=== PATIENT | male | born 1975 | race African-American/Black ===

== ENCOUNTER 2017-09-22 20:00 | Emergency (ER) | payer OTHER ==
[~2017-09-22] VITALS: Ht 180.3 cm; Wt 108.9 kg
[2017-09-22] MEDS ORDERED: NOHOMEMEDICATIONS (20:14)
[2017-09-22] MEDS ORDERED: OXYCODONE HCL 55 MG PO (21:37)
[2017-09-22 21:45] VITALS: BP 148/90
== END 2017-09-22 21:46 | disposition home or self-care (01) ==
LOC: ER 20:00
DX: M25.562 Pain in left knee (principal); J45.909 Unspecified asthma, uncomplicated

== ENCOUNTER 2019-01-08 17:33 | Emergency (ER) | payer BC, OTHER ==
[~2019-01-08] VITALS: Ht 180.3 cm; Wt 108.9 kg
[~2019-01-08 17:33] MED LIST: NOHOMEMEDICATIONS; OXYCODONE HCL 55 MG PO
[2019-01-08 18:13] LABS: HEMATOCRIT 44.1 % (42.0-52.0); HEMOGLOBIN 14.7 gm/dL (14.0-18.0); MCH 29.2 pg (26.0-34.0); MCHC 33.4 g/dL (28.0-37.0); MCV 87.3 fL (80.0-100.0); PLATELET COUNT 155 thou/uL (150-400); RBC 5.05 mil/uL (4.50-6.00); RDW 13.3 % (10.5-14.5); WBC 4.8 thou/uL (4.0-11.0)
[2019-01-08 18:16] LABS: CALCIUM 8.8 mg/dL (8.5-10.1); CREATININE 1.2 mg/dL (0.7-1.3); POTASSIUM 3.9 mmol/L (3.5-5.1)
[2019-01-08 18:22] LABS: TOTAL BILIRUBIN 0.3 mg/dL (<0.1-1.0); TOTAL PROTEIN 8.6 g/dL (6.4-8.2)
[2019-01-08 18:34] LABS: ABSOLUTE NEUTROPHILS 3.2 thou/uL (1.4-8.2)
[2019-01-08] MEDS ORDERED: PREDNISONE 20 M20 MG PO (18:54)
[2019-01-08] MEDS ORDERED: TESSALON PERLE100 MG PO (18:54)
[2019-01-08] MEDS ORDERED: PROAIR HFA8.5 GM INH (18:54)
[2019-01-08 18:57] VITALS: BP 136/100
[2019-01-08 19:09] LABS: URINE BILIRUBIN NEGATIVE (Negative); URINE BLOOD TRACE (Negative); URINE CLARITY CLEAR; URINE GLUCOSE-RANDOM* NEGATIVE (Negative); URINE KETONES NEGATIVE (Negative); URINE LEUKOCYTES-REFLEX NEGATIVE (Negative); URINE NITRITE-REFLEX NEGATIVE (Negative); URINE PROTEIN (DIPSTICK) TRACE (Negative); URINE SPECIFIC GRAVITY >= 1.030 (1.005-1.035); URINE UROBILINOGEN 0.2 E.U./dl (0.2-1.0)
[2019-01-08 19:10] LABS: URINE COLOR YELLOW
--- NOTE | 2019-01-10 07:31 | EKG ---
[address] [address] ELECTROCARDIOGRAM REPORT Name: ABEL LE [id number] Admission: 01/08/19 Attend Phys: Discharge: 01/08/19 Date of : 71 Report #: [id number] THIS REPORT FOR: //name// [facility] ED Test Date: 2019-01-08 Test Time: 18:06:18 Pat Name: ABEL LE Department: Room: Gender: Nip Wrapper: : 1975 Requested By: Santy Redding Order Number: [id number] MD: Tavo Morocho Measurements Intervals [place] Rate: 89 P: 64 MD: 171 QRS: 39 QRSD: 89 T: 13 QT: 360 QTc: 439 Interpretive Statements Sinus rhythm Normal tracing No previous ECG available for comparison Electronically Signed On 01-10-2019 7:31:[address] [facility] by Tavo Morocho [email or web address] <ELECTRONICALLY SIGNED> By: Tavo Morocho MD, [facility] 01/10/19 0731 1806 1806 Tavo Morocho MD, FACC /EPI
== END 2019-01-08 19:03 | disposition home or self-care (01) ==
LOC: ER 17:33
PROVIDERS: Emergency Medicine
DX: J45.901 Unspecified asthma with (acute) exacerbation (principal); B34.9 Viral infection, unspecified

== ENCOUNTER 2019-09-28 09:03 | Emergency (ER) | payer BC, OTHER ==
[~2019-09-28] VITALS: Ht 180.3 cm; Wt 108.9 kg
[~2019-09-28 09:03] MED LIST changes: +PREDNISONE 20 M20 MG PO; +PROAIR HFA8.5 GM INH; +TESSALON PERLE100 MG PO
[2019-09-28 09:50] VITALS: BP 150/92
== END 2019-09-28 09:53 | disposition home or self-care (01) ==
LOC: ER 09:03
DX: R03.0 Elevated blood-pressure reading, without diagnosis of hypertension (principal); J45.909 Unspecified asthma, uncomplicated

== ENCOUNTER 2019-11-22 17:01 | Emergency (ER) | payer BC, OTHER ==
[~2019-11-22] VITALS: Ht 177.8 cm; Wt 113.4 kg
[2019-11-22] MEDS ORDERED: BUTALB-APAP-CA1 EACH PO (21:08)
[2019-11-22 21:17] VITALS: BP 134/83
== END 2019-11-22 21:29 | disposition home or self-care (01) ==
LOC: ER 17:01
DX: G43.909 Migraine, unspecified, not intractable, without status migrainosus (principal); R11.2 Nausea with vomiting, unspecified; J45.909 Unspecified asthma, uncomplicated

== ENCOUNTER 2021-06-22 10:44 | Emergency (ER) | payer BC, OTHER ==
[~2021-06-22] VITALS: Ht 180.3 cm; Wt 108.9 kg
[~2021-06-22 10:44] MED LIST changes: +BUTALB-APAP-CA1 EACH PO
[2021-06-22] MEDS ORDERED: PROAIR HFA8.5 GM INH (12:39)
[2021-06-22] MEDS ORDERED: PREDNISONE 20 M20 MG PO (12:39)
[2021-06-22] MEDS ORDERED: AZITHROMYCIN 2250 MG PO (12:39)
[2021-06-22 12:48] VITALS: BP 122/95
== END 2021-06-22 12:48 | disposition home or self-care (01) ==
LOC: ER 10:44
DX: U07.1 COVID-19 (principal); J12.82 Pneumonia due to coronavirus disease 2019; J45.901 Unspecified asthma with (acute) exacerbation